=== PATIENT | male | born 2000 | race African-American/Black ===

== ENCOUNTER 2023-01-30 16:16 | Emergency (ER) | payer MEDICAID ==
[~2023-01-30] VITALS: Ht 185.4 cm; Wt 90.0 kg
[2023-01-30 16:34] VITALS: O2SAT 97
[2023-01-30] MEDS ORDERED: LIDO1ADH23 TP (18:20)
[2023-01-30] MEDS ORDERED: IBUP-2028 MT (18:20)
[2023-01-30] MEDS ORDERED: METH-653 MT (18:20)
[2023-01-30] MEDS ORDERED: TOPUD PO (18:20)
[2023-01-30] MEDS ORDERED: ACETAMINOPHEN 325MG TABLET PO ONE (18:30)
[2023-01-30] MEDS ORDERED: IBUPROFEN 400MG TABLET PO ONE (18:30)
[2023-01-30 18:43] VITALS: BP 129/70; PULSE 76; RESP 16; TEMP 97.2
== END 2023-01-30 18:45 | disposition home or self-care (01) ==
LOC: ER 16:16
DX: M54.50 Low back pain, unspecified (principal); Z98.890 Other specified postprocedural states; V49.49XA Driver injured in collision with other motor vehicles in traffic accident, initial encounter; Y93.89 Activity, other specified; Y92.89 Other specified places as the place of occurrence of the external cause; Y99.8 Other external cause status
CPT/HCPCS: 99283; Z7610